=== PATIENT | male | born 1950 | race Caucasian/White ===

== ENCOUNTER 2017-08-20 07:29 | Outpatient (CLI) | payer MEDICARE, BC ==
--- NOTE | 2017-08-20 08:08 | ULT ---
ABDOMINAL PAIN: History: Abdominal pain. History of smoking. Diabetes. Hypertension. FINDINGS: Multiple longitudinal and transverse images of the abdominal aorta obtained using multihertz curvili near transducer. Real-time and color flow images demonstrate the abdominal aorta to be unremarkable. No significant e vidence of abdominal aortic aneurysms or dissection seen. Abdominal aorta has maximum proximal aorti c diameter of 2.0 x 1.9 cm measuring 1.7 x 1.5 cm in the mid abdominal aorta and 1.4 x 1.5 cm in the distal abdominal aorta. Normal triphasic waveform is seen. IMPRESSION: No evidence of abdominal aortic aneurysm. POS: [facility]
--- NOTE | 2017-08-20 08:19 | CT ---
CT PULMONARY LUNG SCAN: Indication: Screening evaluation. 67-year-old male with 50+ years of smoking, still smoking. FINDINGS: There is an area of subsegmental atelectasis versus scarring involving the posterolateral aspect of the right lower lobe. There is a small sub 4 mm nodule seen within the superior segment of the right lower lobe, adjacent to the right major fissure. No suspicious pulmonary nodule is evident. There are scattered centrilobular and para-septal emphysema. Visualized upper abdomen demonstrates c alcified granuloma within the spleen. There are scattered degenerative and osteoarthritic change. There is an 8.7 cm intramuscular lipoma within the left subscapularis. IMPRESSION: 1. Lung rads category 1 - negative. No suspicious pulmonary nodules. 2. Linear area of subsegmental atelectasis or scarring is seen within the posterolateral aspect of t he right lower lobe. 3. Recommend follow up lung cancer screening CT evaluation in one year. 4. Findings or prior granulomatous disease. 5. Intramuscular lipoma within the left subscapularis muscle. POS: [facility]
== END 2017-08-20 07:30 | disposition home or self-care (01) ==
LOC: CT 07:29
PROVIDERS: ATTEND Family Medicine
DX: Z00.00 Encounter for general adult medical examination without abnormal findings (principal); Z13.6 Encounter for screening for cardiovascular disorders; F17.210 Nicotine dependence, cigarettes, uncomplicated; D17.9 Benign lipomatous neoplasm, unspecified
CPT/HCPCS: 76775; G0297

== ENCOUNTER 2018-12-02 09:06 | Outpatient (CLI) | payer MEDICARE, BC ==
--- NOTE | 2018-12-02 10:20 | CT ---
CT OF THE CHEST WITHOUT CONTRAST: Comparison: 08-20-17 History: Nicotine dependence. 50+ pack/year smoking history. Technique: Multiple contiguous axial images were obtained in a CT of the chest without contrast per l ow dose cancer screening protocol. Sagittal and coronal reformats were performed. FINDINGS: No suspicious pulmonary nodules are seen. No pneumothorax or pleural effusion are seen. No focal infi ltrates are seen. The heart is normal size without focal cardiac abnormality. Calcifications are seen in the coronary a rteries. No hilar or mediastinal lymphadenopathy are seen. There appears to be a hyperdense cyst emanating from the superior pole of the right kidney, partially visualized. Calcifications in the spleen are from prior granulomatous disease. The other visualized subdiaphragmatic structures are unremarkable. The chest wall soft tissues are unremarkable. Degenerat balta changes are seen in the spine. IMPRESSION: Lung RADS category 1 - negative. POS: [facility]
== END 2018-12-02 09:07 | disposition home or self-care (01) ==
LOC: CT 09:06
PROVIDERS: ATTEND Family Medicine
DX: F17.210 Nicotine dependence, cigarettes, uncomplicated (principal)
CPT/HCPCS: G0297

== ENCOUNTER 2019-12-03 09:44 | Outpatient (CLI) | payer MEDICARE, BC ==
--- NOTE | 2019-12-03 11:14 | CT ---
CT chest noncontrast low-dose screening HISTORY: Tobacco abuse. COMPARISON: 12/02/2018. FINDINGS: Lungs remain hyperinflated. Proximal scarring now more prominent at the right posterolatera l lung base. No focal mass or nodule. No pleural fluid or evidence of pneumothorax. Lack of contrast limits evaluation of the soft tissues. There is calcification within the arterial st ructures. Degenerative changes of the thoracic spine. Scattered benign-appearing bone islands within the ribs. Lipoma within the left subscapularis musculature is stable. Inferior most images show a calcification within a nondilated posterior calyx of the right kidney. Lobular low-density exophytic lesion from the superior pole of the right kidney is 1.9 cm oblique brenda meter on today's coronal reformatted images. It is larger than on CT exams from 2012. IMPRESSION: Lung RADS category 1. Negative. Suggest routine screening for the lungs. Exophytic lesion in superior pole of the right kidney is partially visualized and warrants further ev aluation. Probably enlarging from 2017 exam. Please consider dedicated CT kidneys exam, without and with IV contrast for better characterization. Lung RADS S Emphysema with parenchymal lung scarring. Atherosclerosis. Small nonobstructing calculus right kidney. Other incidental-type findings as detailed above. Findings were called to Dr. Sanches 1100 hours. Code CR.
== END 2019-12-03 09:45 | disposition home or self-care (01) ==
LOC: CT 09:44
PROVIDERS: ATTEND Family Medicine
DX: Z12.2 Encounter for screening for malignant neoplasm of respiratory organs (principal); F17.210 Nicotine dependence, cigarettes, uncomplicated; N28.9 Disorder of kidney and ureter, unspecified; N20.0 Calculus of kidney; I70.0 Atherosclerosis of aorta; J43.9 Emphysema, unspecified
CPT/HCPCS: G0297

== ENCOUNTER 2019-12-13 10:47 | Outpatient (CLI) | payer MEDICARE, BC ==
--- NOTE | 2019-12-13 12:13 | CT ---
EXAM: CT Abdomen W WO Con PROVIDED CLINICAL HISTORY: Exophytic right renal lesion incompletely evaluated on noncontrast CT pulmonary lung scan. CT abdomen was requested. COMPARISON: CT pulmonary lung scan on 12/03/2019 FINDINGS: There are 2 hyperdense cystic-appearing lesions seen involving the superior pole and midportion right kidney which demonstrates increased density on precontrast images without evidence of significant enhancement on portal venous or delayed phase of imaging. Lesion in the superior pole right kidney me asures 2.6 cm whereas the lesion in the midportion right kidney measures 2.7 cm. There are multiple additional subcentimeter too small to characterize hypodense lesions scattered throughout each kidney . No enhancing lesion is appreciated. Nonobstructing bilateral renal calculi are identified. There is mild dilatation of inferior pole left renal calyx with mild prominence of the left ureter compared to the right. On delayed phase of imaging, there is suggestion of mild wall thickening involving the most proximal left ureter. This co uld be related to area of peristalsis, but abnormal thickening is suggested. Further evaluation with retrograde study is recommended. Minimal bibasilar atelectasis is present. A view subcentimeter too small to characterize hypodense lesions are seen in the right hepatic lobe. Calcified granuloma is also seen in the right hepatic lobe. Calcified granulomata are seen in the spleen. The pancreas and bilateral adrenal glands demonstrate a normal CT appearance. Vascular calcifications are seen in the abdominal aorta. Colonic diverticulosis is visualized. Loops of small bowel in the abdomen are normal in caliber. Multilevel degenerative changes are seen in the spine with severe endplate degenerative changes at th e L2-3 level. IMPRESSION: 1. Suggested focal area of thickening involving the green of the proximal right ureter. This could be related to an area of peristalsis, but the left ureter is asymmetric compared to the right. Further evaluation with retrograde urogram is recommended. There is mild dilatation of the inferior p ole left renal calyx. 2. Bosniak type II hyperdense exophytic right renal lesions with multiple subcentimeter too small to characterize hypodense lesions in each kidney. 3. No enhancing renal mass is appreciated. 4. Nonobstructing bilateral renal calculi.
[2019-12-13] MEDS ORDERED: Iopamidol-370 76% 500 ML 1 ML ONE (13:22)
== END 2019-12-13 10:48 | disposition home or self-care (01) ==
LOC: BICCT 10:47
PROVIDERS: ATTEND Family Medicine
DX: N28.89 Other specified disorders of kidney and ureter (principal); N20.0 Calculus of kidney
CPT/HCPCS: 74170; 82565; Q9967

== ENCOUNTER 2020-04-22 14:18 | Inpatient (IN) | payer MEDICARE, BC ==
[2020-04-22] MEDS ORDERED: Cefepime 2 GM VIAL ONE (14:49)
[2020-04-22 14:51] LABS: Hemoglobin 16.3 g/dL (14.0-18.0); Mean Corpuscular HGB CONC 34.2 g/dL (32.0-36.0); Mean Corpuscular Hemoglobin 35.6 pg (27.0-31.0); Mean Platelet Volume 7.6 fL (7.4-10.4); Platelet Count 158 thou/uL (130-400); RBC Distribution Width 13.2 % (11.5-14.5); Red Blood Cell (RBC) Count 4.57 mill/uL (4.70-6.10); White Blood Cell (WBC) Count 21.3 thou/uL (4.8-10.8)
[2020-04-22] MEDS ORDERED: Cefepime 2 GM in Sodium Chloride 0.9% 100 ML IVPB SCH (15:00)
[2020-04-22 15:11] LABS: ALT (SGPT) 27 U/L (8-55); AST (SGOT) 23 U/L (5-34); Alkaline Phosphatase 78 U/L (40-110); Anion Gap 19 mmol/L (10-20); BUN (Urea Nitrogen) 21 mg/dL (8.4-25.7); Calc. Creatinine Clearance 0 mL/min (70-130); Calcium 8.9 mg/dL (7.8-10.44); Carbon Dioxide 20 mmol/L (23-31); Chloride 103 mmol/L (98-107); Estimated GFR-MDRD 62; Globulin 3.1 g/dL (2.4-3.5); Glucose 137 mg/dL (80-115); Potassium 3.7 mmol/L (3.5-5.1); Protein, Total 7.1 g/dL (5.8-8.1); Sodium 138 mmol/L (136-145)
[2020-04-22 15:23] LABS: Band 56 % (5-11); Lymphocytes 3 % (21-51); MDiff Complete? YES; Macrocytosis SLIGHT = 6-15 cells (100X) (0-5/hpf); Monocytes 3 % (0-10); Neutrophil 38 % (42-75); Platelet Morphology Comment Appears Adequate; Polychromasia SLIGHT = 2-3 cells (100X) (0-2/hpf); Reflex for Review?? YES
--- NOTE | 2020-04-22 15:59 | ULT ---
LEFT LOWER EXTREMITY VENOUS DUPLEX EXAM: 04/22/20 HISTORY: Left leg swelling. Real time color Doppler evaluation of the left lower extremity is performed from groin to calf. This includes evaluation of common femoral, superficial and profunda femoral, saphenous, popliteal and po sterior tibial veins. This shows a patent deep venous system. There is normal compressibility and aug mentation. Soft tissue edema changes compatible with cellulitis are noted. IMPRESSION: No evidence of DVT of the left lower extremity. POS: [facility]
[2020-04-22] MEDS ORDERED: Dextrose 5% in Water 1,000 ML IV PRN (16:35)
[2020-04-22] MEDS ORDERED: Calcium Carbonate 500 MG ChewTAB PO PRN (16:35)
[2020-04-22] MEDS ORDERED: HYDROcodone/Acetaminophen 5/325 mg Tablet PO PRN (16:35)
[2020-04-22] MEDS ORDERED: Dextrose 50% Abboject 50 ML SYRINGE SLOW IVP PRN (16:35)
[2020-04-22] MEDS ORDERED: Senokot S 8.6-50 MG TAB PO PRN (16:35)
[2020-04-22] MEDS ORDERED: Guaifenesin DM 100-10/5 ML UDCUP PO PRN (16:35)
[2020-04-22] MEDS ORDERED: HumaLOG 300 UNITS/3 ML VIAL SC PRN ×2 (16:35)
[2020-04-22] MEDS ORDERED: Bisacodyl 10 MG SUPP PR PRN (16:35)
[2020-04-22 17:55] VITALS: BMI 38.8
[2020-04-22] MEDS: Sodium Chloride 0.9% 2,500 ML IV SCH ×3 (18:06→23:39)
--- NOTE | 2020-04-22 18:16 | HP ---
REASON FOR ADMISSION: Sepsis, left lower extremity cellulitis. HISTORY OF PRESENTING ILLNESS: The patient gives history of developing chills this morning. His legs were apparently normal in the morning per the patient and . He also mentions that he has had off and on swelling in his left leg especially, which goes away. Around 2 p.m., the patient developed severe nausea and had intractable vomiting. His left leg also started to become red and was hot to touch. The eventually brought him to the emergency room. On arrival, had a temperature of 100.9 degrees. No complaints of cough or expectoration. No exposure to Coronavirus. They hardly come out 4 times in the last 3 months. He has had 1 prior episode of cellulitis years ago and does not recall, which leg he had. The patient states he is active in the house and moves around without any assistive devices. PAST MEDICAL AND SURGICAL HISTORY: 1. Diabetes mellitus type 2. 2. Hypertension. 3. Dyslipidemia. 4. Cataract removal and lens implantation. 5. Bilateral hernia repair, inguinal. 6. Tonsillectomy. 7. Renal stones with surgery for the same. 8. Bilateral hip replacement. CURRENT MEDICATIONS: The patient takes; 1. Allopurinol 300 mg p.o. daily. 2. Norvasc 10 mg daily. 3. Lasix 40 mg daily. 4. Metformin 1000 mg twice daily. 5. Metoprolol tartrate 100 mg daily. 6. Losartan with hydrochlorothiazide 50/12.5 mg daily. 7. Niacin 1000 mg daily. ALLERGIES: NO KNOWN DRUG ALLERGIES. PERSONAL HISTORY: Smokes less than a pack a day. Does not abuse alcohol or drugs. Lives with his . FAMILY HISTORY: Mother at the age of 84. She has had history of renal failure. Father at the age of 76. He has had history of Parkinson disease. CODE STATUS: Full. Power of commonwealth attorney is his . REVIEW OF SYSTEMS: CONSTITUTIONAL: Negative for weight loss or gain, ability to conduct usual activities. SKIN: Negative for rash, itching. EYES: Negative for double vision, pain. ENT/MOUTH: Negative for nose bleeding, neck stiffness, pain, tenderness. CARDIOVASCULAR: Negative for palpitations, dyspnea on exertion, orthopnea. RESPIRATORY: Negative for shortness of breath, wheezing, cough, hemoptysis, fever or night sweats. GASTROINTESTINAL: Negative for poor appetite, abdominal pain, heartburn, nausea, vomiting, constipation, or diarrhea. GENITOURINARY: Negative for urgency, frequency, dysuria, nocturia. MUSCULOSKELETAL: Negative for pain, swelling. NEUROLOGIC/PSYCHIATRIC: Negative for anxiety, depression. ALLERGY/IMMUNOLOGIC: Negative for skin rash, bleeding tendency. PHYSICAL EXAMINATION: GENERAL: The patient is a 69-year-old male, who is currently not in any acute distress. VITAL SIGNS: Blood pressure 132/80, pulse 110 per minute, respiratory rate 20 per minute, temperature 100.9 degrees Fahrenheit, saturating 98% on room air. NECK: Supple. No elevated JVD. HEENT: Eyes; extraocular muscles intact. Pupils reacting to light. Oral cavity, mucous membranes are dry. No exudates or congestion. CARDIOVASCULAR: S1, S2 heard. Regular rhythm. RESPIRATORY: Air entry 1+ bilateral. Scattered rhonchi plus no rales or wheezes. ABDOMEN: Soft. Bowel sounds heard. No tenderness, rigidity, or guarding. EXTREMITIES: Left leg and foot area, where there is severe erythema and edema, and it is hot to touch. Peripheral pulses are 1+ bilateral. No ischemic ulcerations or gangrene. CENTRAL NERVOUS SYSTEM: No gross focal motor deficits noted. The patient is alert, awake, oriented well. PSYCHIATRIC: The patient's mood is euthymic. No hallucinations or delusions. LABORATORY DATA: Left lower extremity venous Doppler done, shows no evidence of DVT. White count of 21, H and H of 16 and 47, platelet count 158, with 38% neutrophils, 56% bands, 3% lymphocytes. MCV is 104, serum bicarb 20, BUN 21, creatinine 1.1, serum glucose 137, lactic acid 4.6. Liver enzymes within normal limits. Albumin is 4.0. CLINICAL IMPRESSION AND PLAN: The patient will be admitted to medical floor for sepsis with severe left lower extremity cellulitis. He will be on vancomycin and Zosyn. Blood cultures have been obtained in the ER. We will also gently hydrate him with normal saline at 100 mL per hour. We will continue his home dose of Norvasc, metoprolol, Cozaar with hydrochlorothiazide, metformin as before. We will consult Dr. Arizmendi for Infectious Disease. The patient appears to have a sudden onset of left leg cellulitis with severe edema as well, which was apparently normal in the morning per patient and . If needed, we will add clindamycin to block the toxins if he were to get worse. Job ID: [id number]
[2020-04-22] MEDS: Ondansetron PF 4 MG/2 ML Vial IVP PRN (18:26)
[2020-04-22] MEDS: Sodium Chloride 0.9% 1,000 ML IV SCH (18:33)
[2020-04-22] MEDS: Piperacillin/Tazobactam 4.5 GM in Sodium Chloride 0.9% 100 ML IVPB SCH (18:33)
[2020-04-22 18:37] LABS: Lactic Acid 4.2 mmol/L (0.5-2.2)
[2020-04-22] MEDS: Famotidine 20 MG TAB PO SCH (20:23)
[2020-04-22] MEDS: Acetaminophen 325 MG TAB PO PRN (20:25)
[2020-04-22] MEDS: Amlodipine 5 MG TAB PO SCH (20:29)
[2020-04-22] MEDS ORDERED: Vancomycin HCl 1 GM in Sodium Chloride 0.9% 250 ML 300 ML IVPB SCH (21:00)
[2020-04-22 22:18] LABS: Lactic Acid 2.5 mmol/L (0.5-2.2)
[2020-04-23] MEDS: Piperacillin/Tazobactam 4.5 GM in Sodium Chloride 0.9% 100 ML IVPB SCH ×2 (03:20→08:39)
[2020-04-23] MEDS: Sodium Chloride 0.9% 1,000 ML IV SCH (03:20)
[2020-04-23] MEDS: Vancomycin HCl 1.25 GM in Sodium Chloride 0.9% 250 ML 250 ML IVPB SCH ×2 (03:22→15:58)
[2020-04-23] MEDS: Ondansetron PF 4 MG/2 ML Vial IVP PRN (03:22)
[2020-04-23 06:13] LABS: Anion Gap 14 mmol/L (10-20); BUN (Urea Nitrogen) 22 mg/dL (8.4-25.7); Calc. Creatinine Clearance 105 mL/min (70-130); Calcium 7.2 mg/dL (7.8-10.44); Carbon Dioxide 21 mmol/L (23-31); Chloride 105 mmol/L (98-107); Estimated GFR-MDRD 60; Glucose 100 mg/dL (80-115); Potassium 3.6 mmol/L (3.5-5.1); Sodium 136 mmol/L (136-145)
[2020-04-23 06:38] LABS: Hemoglobin 13.9 g/dL (14.0-18.0); Mean Corpuscular HGB CONC 35.1 g/dL (32.0-36.0); Mean Corpuscular Hemoglobin 37.1 pg (27.0-31.0); Mean Platelet Volume 7.9 fL (7.4-10.4); Platelet Count 125 thou/uL (130-400); RBC Distribution Width 13.6 % (11.5-14.5); Red Blood Cell (RBC) Count 3.74 mill/uL (4.70-6.10); White Blood Cell (WBC) Count 19.8 thou/uL (4.8-10.8)
[2020-04-23 08:00] LABS: Band 27 % (5-11); Eosinophils 1 % (0-10); Lymphocytes 11 % (21-51); MDiff Complete? YES; Macrocytosis SLIGHT = 6-15 cells (100X) (0-5/hpf); Monocytes 3 % (0-10); Neutrophil 58 % (42-75)
[2020-04-23] MEDS: Enoxaparin Sodium 40 MG/0.4 ML SYRINGE SC SCH (08:39)
[2020-04-23] MEDS: metFORMIN 500 MG TAB PO SCH ×2 (08:39→15:58)
[2020-04-23] MEDS: Famotidine 20 MG TAB PO SCH ×2 (08:39→20:16)
[2020-04-23] MEDS: Acetaminophen 325 MG TAB PO PRN ×2 (10:29→15:58)
--- NOTE | 2020-04-23 11:48 | PDOC.HOSPP ---
- Subjective Encounter Date: 04/23/20 Encounter Time: 08:30 Subjective: has off and on fever at bedside no cough or expectoration says his leg redness is slowly receding slept well last night - Objective Vital Signs & Weight: Vital Signs (12 hours) Temp Pulse Resp BP BP Pulse Ox 04/23/20 11:00 101.8 F H 82 17 131/73 92 L 04/23/20 08:00 95 04/23/20 07:02 101.6 F H 78 19 120/71 93 L 04/23/20 04:00 99.5 F 75 20 99/62 92 L 04/22/20 23:57 100.4 F H 69 20 97/61 92 L Weight Weight 286 lb 4.8 oz I&O: 04/22/20 04/23/20 04/24/20 06:59 06:59 06:59 Intake Total 450 Balance 450 Result Diagrams: 04/23/20 05:23 04/23/20 05:23 Hospitalist ROS - Medication Medications: Active Medications Generic Name Dose Route Start Last Admin Trade Name Freq PRN Reason Stop Dose Admin Acetaminophen 650 mg 04/22/20 16:35 04/23/20 10:29 Tylenol PO 650 mg Q4H PRN Administration Headache/Fever/Mild Pain (1-3) Amlodipine Besylate 10 mg 04/22/20 21:00 04/22/20 20:29 Norvasc PO Not Given QPM KAYA Enoxaparin Sodium 40 mg 04/23/20 09:00 04/23/20 08:39 Lovenox SC 40 mg 0900 KAYA Administration Famotidine 20 mg 04/22/20 21:00 04/23/20 08:39 Pepcid PO 20 mg BID KAYA Administration HCTZ/Losartan Potassium 1 tab 04/22/20 21:00 04/22/20 20:23 Hyzaar 50/12.5 PO 1 tab QPM KAYA Administration Sodium Chloride 1,000 mls @ 100 mls/hr 04/22/20 16:35 04/23/20 03:20 Normal Saline 0.9% IV 04/23/20 12:34 1,000 mls .Q10H KAYA Administration Vancomycin HCl 1.25 gm/ Sodium 250 mls @ 166.667 mls/hr 04/23/20 04:00 03:22 Chloride IVPB 250 mls 0400,1600 KAYA Administration Metformin HCl 1,000 mg 04/23/20 08:00 04/23/20 08:39 Glucophage PO 1,000 mg BID-WM KAYA Administration Metoprolol Succinate 100 mg 04/22/20 21:00 04/22/20 20:23 Toprol Xl PO 100 mg QPM KAYA Administration Niacin 1,000 mg 04/22/20 21:00 04/22/20 20:23 Niaspan Er PO 1,000 mg HS KAYA Administration Ondansetron HCl 4 mg 04/22/20 16:35 04/23/20 03:22 Zofran IVP 4 mg Q6H PRN Administration Nausea/Vomiting - Exam General Appearance: awake alert Eye: PERRL, anicteric sclera ENT: no oropharyngeal lesions, moist mucosa Neck: supple, no JVD Heart: RRR, no murmur Respiratory: no wheezes, no rales Gastrointestinal: soft, non-tender, non-distended, normal bowel sounds Extremities - other findings: left leg erythema and edema, one blister has come up posteriorly Neurological: cranial nerve grossly intact, no focal deficits Hosp A/P (1) Sepsis Code(s): A41.9 - SEPSIS, UNSPECIFIED ORGANISM Status: Acute Qualifiers: Sepsis type: sepsis due to unspecified organism Severe sepsis shock status : without septic shock (2) Left leg cellulitis Code(s): L03.116 - CELLULITIS OF LEFT LOWER LIMB Status: Acute (3) HTN (hypertension) Code(s): I10 - ESSENTIAL (PRIMARY) HYPERTENSION Status: Chronic Qualifiers: Hypertension type: essential hypertension Qualified Code(s): I10 - Essential (primary) hypertension (4) DM type 2 (diabetes mellitus, type 2) Status: Chronic Qualifiers: Diabetes mellitus lobsterman insulin use: without custodial use (5) Dyslipidemia Code(s): E78.5 - HYPERLIPIDEMIA, UNSPECIFIED Status: Chronic (6) Obesity (BMI 30-39.9) Code(s): E66.9 - OBESITY, UNSPECIFIED Status: Chronic (7) Tobacco abuse Code(s): Z72.0 - TOBACCO USE Status: Chronic - Plan change zosyn to meropenem, is also on vanc tmax of 102 continue iv fluids d/w patient and at bedside Dr.Ugo to see pt erythema is slowly receding in left leg but still has edema.
[2020-04-23] MEDS: MEROPENEM 1 GM/50 ML 1 GM in Premix Bag 1 BAG IVPB SCH ×2 (14:04→21:16)
--- NOTE | 2020-04-23 19:49 | CON ---
DATE OF CONSULTATION: 04/23/2020 REASON FOR CONSULTATION: Cellulitis in the left lower extremity. HISTORY OF PRESENT ILLNESS: A 69-year-old who has a history of chronic smoking, type 2 diabetes, hyperlipidemia, obesity, and hypertension, who has had episodes of cellulitis in the lower extremities in the past and presents with another recurrence in the left side. This developed over the past 2 days approximately before admission. On arrival, his BP 130/80, pulse 115, respirations 20, temperature 100.9, and O2 saturations were 98. The patient was oriented. His lungs were clear. Heart exam showed S1 and S2 with regular rate. Abdomen was distended, but not tender. There was marked erythema in the circumferential distribution in the left lower extremity below the knee, but no blistering. Initial findings included a white cell count 21,000, hemoglobin 16, and platelets 158 with 56% bands. Creatinine was 1.2 and liver profile was normal. Lactic acid was 4.6 and is down to 2.5 at the moment. Two sets of blood cultures thus far no growth. The patient has been given vancomycin and meropenem. He is still having intermittent temperature elevation of 102.9 at 10 o'clock and then 101 at 11. Right now, he appears to be feeling better. He denies any headaches, visual symptoms, sore throat, odynophagia, or dysphagia. No dyspnea. A little bit of coughing spells. No abdominal pain. No diarrhea. No genitourinary symptoms. Moderate pain in the left leg, but not as much as yesterday. MEDICAL HISTORY: 1. Diabetes. 2. Obesity. 3. Chronic smoking. 4. Hyperlipidemia. 5. Hypertension. 6. Cellulitis. 7. Venous insufficiency of lower extremities. 8. Also had a history of gout in the past. SURGICAL HISTORY: 1. Nephrolithiasis. 2. Removal of cataracts. 3. Inguinal hernia repair with detached retina. 4. Hip replacement bilaterally. SOCIAL HISTORY: He used to work at [employer] in the [employer] department. He is retired. Lives with his in [place]. Both smoke daily and does not drink alcoholic beverages much. ALLERGIES: NONE. CURRENT MEDICATIONS: 1. P.r.n. medications and inhalers. 2. Norvasc. 3. Dulcolax. 4. Tums. 5. Lovenox. 6. Pepcid. 7. Hydrochlorothiazide. 8. Losartan. 9. Ibuprofen. 10. Insulin. 11. Meropenem 1 g q.8. 12. Vancomycin. PHYSICAL EXAMINATION: VITAL SIGNS: Latest temperature 101.8 a few hours ago. Other vital signs are not remarkable. GENERAL: Appears in no distress. Peripheral IV access. He is voiding in the toilet. SKIN: Circumferential erythema in the left leg, starting about 5 cm below the left knee all the way down to the foot, stopping at the ankle and hindfoot region. There is no blistering. No areas of necrosis. No lymphadenopathy. HEENT: Ocular movements conjugate. Oral cavity, still quite a few teeth in place with moderate decay. NECK: Supple. No jugular vein distention. LUNGS: Symmetric with clear breath sounds. HEART: S1 and S2. Regular rate. No S3 or S4. ABDOMEN: Protuberant, but not tender. No ascites. No bladder distention. No organomegaly. EXTREMITIES: No joint inflammatory activity. Range of motion of hips are preserved. Pulses are 2+ in dorsalis pedis. Cap refill is normal. NEUROLOGIC: Nonfocal. LABORATORY DATA: Latest labs with a creatinine 1.2 and white cell count is at 19.8. The bands are down to 27%. He had a vascular ultrasound, which showed no evidence of deep vein thrombosis. ASSESSMENT: 1. Chronic smoking. 2. Diabetes. 3. Obesity. 4. Hypertension. 5. Venous insufficiency. 6. Recurrent episodes of cellulitis, now with cellulitis in the left lower extremity. DISCUSSION: Most cases of cellulitis and extremities in the lower extremities are secondary to beta-hemolytic streptococci. I expect this to be the case in this patient's illness as well. Once there is further improvement, I would transition him to Rocephin and eventually to oral Keflex for discharge planning, he would benefit from compressive stockings or some form of device such as wraps down the road. I would also advise long-term suppressive therapy with Pen VK 250 mg b.i.d. Job ID: [id number]
[2020-04-23] MEDS: Amlodipine 5 MG TAB PO SCH (20:16)
[2020-04-24] MEDS: Acetaminophen 325 MG TAB PO PRN ×3 (02:02→18:46)
[2020-04-24 03:53] LABS: Vancomycin, Trough 6.2 ug/mL
[2020-04-24] MEDS: Vancomycin HCl 1.25 GM in Sodium Chloride 0.9% 250 ML 250 ML IVPB SCH (04:23)
[2020-04-24] MEDS ORDERED: Meropenem 1 GM in Sodium Chloride 0.9% 100 ML IVPB SCH (06:00)
[2020-04-24] MEDS: Enoxaparin Sodium 40 MG/0.4 ML SYRINGE SC SCH (08:13)
[2020-04-24] MEDS: metFORMIN 500 MG TAB PO SCH ×2 (08:13→16:21)
[2020-04-24] MEDS: Nicotine 21 MG PATCH TD SCH (08:13)
[2020-04-24] MEDS: Famotidine 20 MG TAB PO SCH ×2 (08:13→20:27)
[2020-04-24 08:24] LABS: Hemoglobin 14.1 g/dL (14.0-18.0); Mean Corpuscular HGB CONC 34.1 g/dL (32.0-36.0); Mean Corpuscular Hemoglobin 36.1 pg (27.0-31.0); Platelet Count 136 thou/uL (130-400); RBC Distribution Width 13.3 % (11.5-14.5); White Blood Cell (WBC) Count 24.5 thou/uL (4.8-10.8)
[2020-04-24 08:31] LABS: Anion Gap 16 mmol/L (10-20); BUN (Urea Nitrogen) 17 mg/dL (8.4-25.7); Calc. Creatinine Clearance 115 mL/min (70-130); Calcium 7.6 mg/dL (7.8-10.44); Carbon Dioxide 21 mmol/L (23-31); Chloride 103 mmol/L (98-107); Estimated GFR-MDRD 66; Glucose 120 mg/dL (80-115); Potassium 3.5 mmol/L (3.5-5.1); Sodium 136 mmol/L (136-145)
[2020-04-24 09:46] LABS: Band 18 % (5-11); Lymphocytes 11 % (21-51); MDiff Complete? YES; Metamyelocyte 1 % (0-0); Monocytes 5 % (0-10); Neutrophil 64 % (42-75); Platelet Morphology Comment Appears Adequate; Polychromasia SLIGHT = 2-3 cells (100X) (0-2/hpf); Reactive Lymphocytes 1 % (0-10)
--- NOTE | 2020-04-24 11:29 | PDOC.HOSPP ---
- Subjective Encounter Date: 04/24/20 Encounter Time: 10:00 Subjective: feels better this am at bedside fever is slowly subsiding - Objective Vital Signs & Weight: Vital Signs (12 hours) Temp Pulse Resp BP Pulse Ox 04/24/20 08:13 98 04/24/20 07:41 98.9 F 79 24 H 107/55 L 98 04/24/20 03:54 99 F 75 18 106/65 91 L 04/24/20 00:00 100.6 F H 89 18 104/64 93 L Weight Weight 286 lb 4.8 oz I&O: 04/23/20 04/24/20 04/25/20 06:59 06:59 06:59 Intake Total 450 950 Balance 450 950 Result Diagrams: 04/24/20 07:54 04/24/20 07:54 Hospitalist ROS - Medication Medications: Active Medications Generic Name Dose Route Start Last Admin Trade Name Freq PRN Reason Stop Dose Admin Acetaminophen 650 mg 04/22/20 16:35 04/24/20 02:02 Tylenol PO 650 mg Q4H PRN Administration Headache/Fever/Mild Pain (1-3) Amlodipine Besylate 10 mg 04/22/20 21:00 04/23/20 20:16 Norvasc PO 10 mg QPM KAYA Administration Enoxaparin Sodium 40 mg 04/23/20 09:00 04/24/20 08:13 Lovenox SC 40 mg 0900 KAYA Administration Famotidine 20 mg 04/22/20 21:00 04/24/20 08:13 Pepcid PO 20 mg BID KAYA Administration HCTZ/Losartan Potassium 1 tab 04/22/20 21:00 04/23/20 20:20 Hyzaar 50/12.5 PO 1 tab QPM KAYA Administration Vancomycin HCl 2 gm/ Sodium 500 mls @ 250 mls/hr 04/24/20 05:00 04/24/20 04: 42 Chloride IVPB 500 mls 0500,1700 KAYA Administration Metformin HCl 1,000 mg 04/23/20 08:00 04/24/20 08:13 Glucophage PO 1,000 mg BID-WM KAYA Administration Metoprolol Succinate 100 mg 04/22/20 21:00 04/23/20 20:16 Toprol Xl PO 100 mg QPM KAYA Administration Niacin 1,000 mg 04/22/20 21:00 04/23/20 20:20 Niaspan Er PO 1,000 mg HS KAYA Administration Nicotine 21 mg 04/24/20 09:00 04/24/20 08:13 Nicoderm Patch TD 21 mg DAILY KAYA Administration Ondansetron HCl 4 mg 04/22/20 16:35 04/23/20 03:22 Zofran IVP 4 mg Q6H PRN Administration Nausea/Vomiting - Exam General Appearance: awake alert Eye: PERRL, anicteric sclera ENT: no oropharyngeal lesions, moist mucosa Neck: supple, no JVD Heart: RRR, no murmur Respiratory: no wheezes, no rales, rhonchi Gastrointestinal: soft, non-tender, non-distended, normal bowel sounds Extremities - other findings: left leg erythema and edema Neurological: cranial nerve grossly intact, no focal deficits Psychiatric: normal affect, A&O x 3 Hosp A/P (1) Sepsis Code(s): A41.9 - SEPSIS, UNSPECIFIED ORGANISM Status: Acute Qualifiers: Sepsis type: sepsis due to unspecified organism Severe sepsis shock status : without septic shock (2) Left leg cellulitis Code(s): L03.116 - CELLULITIS OF LEFT LOWER LIMB Status: Acute (3) HTN (hypertension) Code(s): I10 - ESSENTIAL (PRIMARY) HYPERTENSION Status: Chronic Qualifiers: Hypertension type: essential hypertension Qualified Code(s): I10 - Essential (primary) hypertension (4) DM type 2 (diabetes mellitus, type 2) Status: Chronic Qualifiers: Diabetes mellitus intermodal dispatcher insulin use: without senior living use (5) Dyslipidemia Code(s): E78.5 - HYPERLIPIDEMIA, UNSPECIFIED Status: Chronic (6) Obesity (BMI 30-39.9) Code(s): E66.9 - OBESITY, UNSPECIFIED Status: Chronic (7) Tobacco abuse Code(s): Z72.0 - TOBACCO USE Status: Chronic - Plan is on meropenem and vanc tmax of 100 continue iv fluids d/w patient and at bedside has seen patient anat tid erythema is slowly receding in left leg but still has edema.
[2020-04-24] MEDS: Sodium Chloride 0.9% 1,000 ML IV SCH (12:17)
[2020-04-24] MEDS: MEROPENEM 1 GM/50 ML 1 GM in Premix Bag 1 BAG IVPB SCH ×2 (13:02→22:53)
--- NOTE | 2020-04-24 17:05 | PRG ---
DATE OF SERVICE: 04/24/2020 SUBJECTIVE: Mr. Frederick went for a walk and his leg got more swollen and red right after it. Other than that, he is slowly getting better. Had a diarrhea. OBJECTIVE: VITAL SIGNS: 102 last temperature at 12 o'clock. Overall, the temp curve seems to be improving. Other vital signs are not particularly remarkable. EXTREMITIES: The left leg is bright red, but not as swollen as before, and there is a one tense blister medial aspect of the left ankle. No discoloration otherwise. LUNGS: Clear. HEART: S1 and S2, regular rate. ABDOMEN: Soft. Not distended. LABORATORY DATA: White cell count 24.5, hemoglobin 14, bands are down to 18%, which is steady improvement. Creatinine 1.1. Blood cultures, no growth 48 hours. ASSESSMENT: Chronic smoking, diabetes, obesity, venous insufficiency, cellulitis of left lower extremity, quite severe. Again, beta-hemolytic strep most likely scenario here. We will discontinue vancomycin. Continue Merrem for now. Eventually, transition to Rocephin and Keflex for discharge planning. I do not see any evidence to suggest a necrotizing process. Job ID: [id number]
[2020-04-24] MEDS: Amlodipine 5 MG TAB PO SCH (20:27)
[2020-04-25] MEDS: Sodium Chloride 0.9% 1,000 ML IV SCH (03:56)
[2020-04-25] MEDS: MEROPENEM 1 GM/50 ML 1 GM in Premix Bag 1 BAG IVPB SCH (05:21)
[2020-04-25 06:35] LABS: #Basophils 0.1 thou/uL (0.0-0.2); #Eosinphils 0.1 thou/uL (0.0-0.7); #Lymphocytes 1.8 thou/uL (1.20-3.40); #Monocytes 0.9 thou/uL (0.11-0.59); #Neutrophils 15.8 thou/uL (1.40-6.50); %Basophils 0.3 % (0.0-1.0); %Eosinophils 0.3 % (0.0-10.0); %Lymphocytes 9.7 % (21.0-51.0); %Monocytes 4.6 % (0.0-10.0); %Neutrophils 85.1 % (42.0-75.0); Hemoglobin 13.5 g/dL (14.0-18.0); Mean Corpuscular HGB CONC 34.7 g/dL (32.0-36.0); Mean Corpuscular Hemoglobin 36.2 pg (27.0-31.0); Mean Platelet Volume 8.2 fL (7.4-10.4); Platelet Count 131 thou/uL (130-400); RBC Distribution Width 13.3 % (11.5-14.5); Red Blood Cell (RBC) Count 3.73 mill/uL (4.70-6.10); White Blood Cell (WBC) Count 18.6 thou/uL (4.8-10.8)
[2020-04-25 06:52] LABS: Anion Gap 13 mmol/L (10-20); BUN (Urea Nitrogen) 13 mg/dL (8.4-25.7); Calc. Creatinine Clearance 156 mL/min (70-130); Calcium 7.5 mg/dL (7.8-10.44); Carbon Dioxide 21 mmol/L (23-31); Chloride 106 mmol/L (98-107); Estimated GFR-MDRD Greater than 90; Glucose 105 mg/dL (80-115); Potassium 3.3 mmol/L (3.5-5.1); Sodium 137 mmol/L (136-145)
[2020-04-25] MEDS: Famotidine 20 MG TAB PO SCH ×2 (08:24→20:48)
[2020-04-25] MEDS: metFORMIN 500 MG TAB PO SCH ×2 (08:24→17:15)
[2020-04-25] MEDS: Enoxaparin Sodium 40 MG/0.4 ML SYRINGE SC SCH (08:25)
[2020-04-25] MEDS: Nicotine 21 MG PATCH TD SCH (08:26)
[2020-04-25] MEDS ORDERED: Magnevist 469MG/ML 20 ML VIAL ONE (09:29)
--- NOTE | 2020-04-25 12:34 | PDOC.HOSPP ---
- Subjective Encounter Date: 04/25/20 Encounter Time: 10:15 Subjective: feels better, fever has subsided - Objective Vital Signs & Weight: Vital Signs (12 hours) Temp Pulse Resp BP Pulse Ox 04/25/20 12:09 82 16 92 L 04/25/20 11:59 99.2 F 04/25/20 08:00 95 04/25/20 07:12 98.9 F 91 20 150/82 H 95 04/25/20 06:39 84 16 98 04/25/20 05:42 99.2 F Weight Admit Weight 286 lb 4.8 oz Weight 286 lb 4.8 oz I&O: 04/24/20 04/25/20 04/26/20 06:59 06:59 06:59 Intake Total 950 1020 Balance 950 1020 Result Diagrams: 04/25/20 06:20 04/25/20 06:20 Additional Labs: Accuchecks 04/25/20 04/24/20 04/24/20 05:41 19:43 17:12 POC Glucose 110 126 H 107 04/24/20 04/23/20 05:50 19:14 POC Glucose 100 106 Hospitalist ROS - Medication Medications: Active Medications Generic Name Dose Route Start Last Admin Trade Name Freq PRN Reason Stop Dose Admin Acetaminophen 650 mg 04/22/20 16:35 04/24/20 18:46 Tylenol PO 650 mg Q4H PRN Administration Headache/Fever/Mild Pain (1-3) Hydrocodone Bitart/Acetaminophen 1 tab 04/22/20 16:35 04/24/20 14:20 [place] 5/325 PO 1 tab Q4H PRN Administration Moderate Pain (4-6) Albuterol/Ipratropium 3 ml 04/24/20 12:30 04/25/20 12:09 Duoneb NEB 3 ml TID-RT KAYA Administration Amlodipine Besylate 10 mg 04/22/20 21:00 04/24/20 20:27 Norvasc PO 10 mg QPM KAYA Administration Enoxaparin Sodium 40 mg 04/23/20 09:00 04/25/20 08:25 Lovenox SC 40 mg 0900 KAYA Administration Famotidine 20 mg 04/22/20 21:00 04/25/20 08:24 Pepcid PO 20 mg BID KAYA Administration HCTZ/Losartan Potassium 1 tab 04/22/20 21:00 04/24/20 20:27 Hyzaar 50/12.5 PO 1 tab QPM KAYA Administration Meropenem 1 gm/ Device 50 mls @ 100 mls/hr 04/24/20 14:00 04/25/20 05:21 IVPB 50 mls Q8HR KAYA Administration Metformin HCl 1,000 mg 04/23/20 08:00 04/25/20 08:24 Glucophage PO 1,000 mg BID-WM KAYA Administration Metoprolol Succinate 100 mg 04/22/20 21:00 04/24/20 20:27 Toprol Xl PO 100 mg QPM KAYA Administration Niacin 1,000 mg 04/22/20 21:00 04/24/20 20:27 Niaspan Er PO 1,000 mg HS KAYA Administration Nicotine 21 mg 04/24/20 09:00 04/25/20 08:26 Nicoderm Patch TD 21 mg DAILY KAYA Administration Ondansetron HCl 4 mg 04/22/20 16:35 04/23/20 03:22 Zofran IVP 4 mg Q6H PRN Administration Nausea/Vomiting - Exam General Appearance: awake alert Eye: PERRL, anicteric sclera ENT: no oropharyngeal lesions, moist mucosa Neck: supple, no JVD Heart: RRR, no murmur Respiratory: no wheezes, no rales Gastrointestinal: soft, non-tender, non-distended, normal bowel sounds Extremities - other findings: left leg has severe erythema, blisters and edema Neurological: cranial nerve grossly intact, no focal deficits Psychiatric: normal affect, A&O x 3 Hosp A/P (1) Sepsis Code(s): A41.9 - SEPSIS, UNSPECIFIED ORGANISM Status: Acute Qualifiers: Sepsis type: sepsis due to unspecified organism Severe sepsis shock status : without septic shock (2) Left leg cellulitis Code(s): L03.116 - CELLULITIS OF LEFT LOWER LIMB Status: Acute (3) HTN (hypertension) Code(s): I10 - ESSENTIAL (PRIMARY) HYPERTENSION Status: Chronic Qualifiers: Hypertension type: essential hypertension Qualified Code(s): I10 - Essential (primary) hypertension (4) DM type 2 (diabetes mellitus, type 2) Status: Chronic Qualifiers: Diabetes mellitus prison insulin use: without prison use (5) Dyslipidemia Code(s): E78.5 - HYPERLIPIDEMIA, UNSPECIFIED Status: Chronic (6) Obesity (BMI 30-39.9) Code(s): E66.9 - OBESITY, UNSPECIFIED Status: Chronic (7) Tobacco abuse Code(s): Z72.0 - TOBACCO USE Status: Chronic - Plan is on meropenem tmax of 99 will add lasix due to worsoning edema and blistering d/w patient and at bedside has seen patient duonebs tid hemostable
[2020-04-25] MEDS: Ibuprofen 600 MG TAB PO PRN (13:18)
[2020-04-25] MEDS: Furosemide 40 MG/4 ML VIAL SLOW IVP SCH (13:18)
[2020-04-25] MEDS: cefTRIAXone\\ROCEPHIN 1 GM in Sodium Chloride 0.9% 100 ML IVPB SCH (13:26)
--- NOTE | 2020-04-25 13:34 | PRG ---
DATE OF SERVICE: 04/25/2020 SUBJECTIVE: The patient when I arrived in the room was sitting in a chair by the bedside. His legs were down. He had to be gotten tired of lying in bed and is having some back soreness. No respiratory symptoms. He is having still loose stools intermittently. OBJECTIVE: VITAL SIGNS: His T-max now is 99.8 and clear defervescence over the past few days. GENERAL: There is no distress. LUNGS: Clear to auscultation and percussion. HEART: S1 and S2. Regular rate. ABDOMEN: Soft, not distended. Bowel sounds are normal. EXTREMITIES: The left leg with about the same erythema, but I think that this has to do with the fact that he is keeping his leg down. Whenever I elevated the extremity, within a few minutes there is a clear-cut decrease in the amount of erythema, so most of it now is turning into just vascular hyperemia associated with inflammatory process, but not true cellulitic erythema. LABORATORY DATA: White cell count is down to 18.6, hemoglobin 13.5, 85% neutrophils, and the bands are down. Creatinine 0.81. ASSESSMENT AND DISCUSSION: Chronic smoking, diabetes, obesity, venous insufficiency, cellulitis of left lower extremity with steady improvement. We will go ahead and switch him to Rocephin at this moment and we encouraged the patient to keep his legs elevated to accelerate improvement process. Job ID: [id number]
--- NOTE | 2020-04-25 15:19 | MRI ---
EXAM: MRI right distal foreleg and ankle with and without IV contrast PROVIDED CLINICAL HISTORY: Cellulitis COMPARISON: None FINDINGS: There is extensive noncircumscribed fluid signal intensity throughout the subcutaneous adipose layer of the visualized foreleg and foot. There is no evidence for a rim-enhancing fluid collection to suggest abscess. There is diffuse regional skin thickening. There is no evidence for regional joint effusion. Regional marrow signal appears normal. There is extensive patchy signal alteration on fluid sensitive sequences throughout the foreleg muscu lature, predominating involving the posterior compartment. There is no significant regional tenosynovial fluid evident. The courses of the regional major neurovascular structures appear unremarkable. IMPRESSION: 1. Extensive noncircumscribed, nonenhancing fluid signal intensity throughout the subcutaneous adipos e layer of the visualized foreleg and foot, which could reflect lymphedema and/or cellulitis. There is no evidence for soft tissue abscess. 2. No evidence for osteomyelitis. 3. Extensive patchy regional muscular signal alteration, which can be seen in the setting of diabetic myonecrosis, as well as denervation and nonspecific myositis.
[2020-04-25] MEDS: Amlodipine 5 MG TAB PO SCH (20:48)
[2020-04-26] MEDS: Furosemide 40 MG/4 ML VIAL SLOW IVP SCH ×2 (05:39→13:33)
[2020-04-26 06:25] LABS: #Basophils 0.1 thou/uL (0.0-0.2); #Eosinphils 0.1 thou/uL (0.0-0.7); #Lymphocytes 1.6 thou/uL (1.20-3.40); #Monocytes 0.7 thou/uL (0.11-0.59); #Neutrophils 9.9 thou/uL (1.40-6.50); %Basophils 0.5 % (0.0-1.0); %Eosinophils 0.7 % (0.0-10.0); %Lymphocytes 12.6 % (21.0-51.0); %Monocytes 5.7 % (0.0-10.0); %Neutrophils 80.5 % (42.0-75.0); Hemoglobin 13.6 g/dL (14.0-18.0); Mean Corpuscular Hemoglobin 33.9 pg (27.0-31.0); Mean Platelet Volume 8.3 fL (7.4-10.4); Platelet Count 144 thou/uL (130-400); RBC Distribution Width 13.4 % (11.5-14.5); Red Blood Cell (RBC) Count 4.02 mill/uL (4.70-6.10); White Blood Cell (WBC) Count 12.3 thou/uL (4.8-10.8)
[2020-04-26 06:43] LABS: Anion Gap 14 mmol/L (10-20); BUN (Urea Nitrogen) 16 mg/dL (8.4-25.7); Calc. Creatinine Clearance 143 mL/min (70-130); Calcium 8.2 mg/dL (7.8-10.44); Carbon Dioxide 23 mmol/L (23-31); Chloride 105 mmol/L (98-107); Estimated GFR-MDRD 86; Glucose 109 mg/dL (80-115); Potassium 3.3 mmol/L (3.5-5.1); Sodium 139 mmol/L (136-145)
[2020-04-26] MEDS: Acetaminophen 325 MG TAB PO PRN (08:43)
[2020-04-26] MEDS: metFORMIN 500 MG TAB PO SCH ×2 (08:43→17:35)
[2020-04-26] MEDS: Enoxaparin Sodium 40 MG/0.4 ML SYRINGE SC SCH (08:44)
[2020-04-26] MEDS: Famotidine 20 MG TAB PO SCH ×2 (08:44→20:46)
[2020-04-26] MEDS: Nicotine 21 MG PATCH TD SCH (08:44)
--- NOTE | 2020-04-26 12:51 | PDOC.HOSPP ---
- Subjective Encounter Date: 04/26/20 Encounter Time: 10:45 Subjective: sitting in chair with elevation of left leg feels better, no fever - Objective Vital Signs & Weight: Vital Signs (12 hours) Temp Pulse Resp BP BP Pulse Ox 04/26/20 11:57 87 20 98 04/26/20 11:11 98.6 F 88 18 134/82 98 04/26/20 08:00 96 04/26/20 07:32 91 16 96 04/26/20 07:06 99.4 F 84 18 145/86 H 96 04/26/20 04:28 97.5 F L 79 18 113/73 95 Weight Admit Weight 286 lb 4.8 oz Weight 286 lb 4.8 oz I&O: 04/25/20 04/26/20 04/27/20 06:59 06:59 06:59 Intake Total 1020 1600 Balance 1020 1600 Result Diagrams: 04/26/20 06:03 04/26/20 06:03 Additional Labs: Accuchecks 04/26/20 04/26/20 04/25/20 11:16 04:28 20:02 POC Glucose 102 138 H 141 H 04/25/20 04/25/20 16:18 12:01 POC Glucose 105 96 Hospitalist ROS - Medication Medications: Active Medications Generic Name Dose Route Start Last Admin Trade Name Freq PRN Reason Stop Dose Admin Acetaminophen 650 mg 04/22/20 16:35 04/26/20 08:43 Tylenol PO 650 mg Q4H PRN Administration Headache/Fever/Mild Pain (1-3) Hydrocodone Bitart/Acetaminophen 1 tab 04/22/20 16:35 04/24/20 14:20 [place] 5/325 PO 1 tab Q4H PRN Administration Moderate Pain (4-6) Albuterol/Ipratropium 3 ml 04/24/20 12:30 04/26/20 11:57 Duoneb NEB 3 ml TID-RT KAYA Administration Amlodipine Besylate 10 mg 04/22/20 21:00 04/25/20 20:48 Norvasc PO 10 mg QPM KAYA Administration Enoxaparin Sodium 40 mg 04/23/20 09:00 04/26/20 08:44 Lovenox SC 40 mg 0900 KAYA Administration Famotidine 20 mg 04/22/20 21:00 04/26/20 08:44 Pepcid PO 20 mg BID KAYA Administration Furosemide 40 mg 04/25/20 14:00 04/26/20 05:39 Lasix SLOW IVP 40 mg 0600,1400 KAYA Administration HCTZ/Losartan Potassium 1 tab 04/22/20 21:00 04/25/20 20:48 Hyzaar 50/12.5 PO 1 tab QPM KAYA Administration Ceftriaxone Sodium 1 gm/ 100 mls @ 200 mls/hr 04/25/20 14:00 04/25/20 13:26 Sodium Chloride IVPB 100 mls Q24HR KAYA Administration Ibuprofen 600 mg 04/23/20 10:21 04/25/20 13:18 Motrin PO 600 mg Q6H PRN Administration temp >101 Metformin HCl 1,000 mg 04/23/20 08:00 04/26/20 08:43 Glucophage PO 1,000 mg BID-WM KAYA Administration Metoprolol Succinate 100 mg 04/22/20 21:00 04/25/20 20:48 Toprol Xl PO 100 mg QPM KAYA Administration Niacin 1,000 mg 04/22/20 21:00 04/25/20 20:48 Niaspan Er PO 1,000 mg HS KAYA Administration Nicotine 21 mg 04/24/20 09:00 04/26/20 08:44 Nicoderm Patch TD 21 mg DAILY KAYA Administration Ondansetron HCl 4 mg 04/22/20 16:35 04/23/20 03:22 Zofran IVP 4 mg Q6H PRN Administration Nausea/Vomiting - Exam General Appearance: awake alert Eye: PERRL, anicteric sclera ENT: no oropharyngeal lesions, moist mucosa Neck: supple, no JVD Heart: RRR, no murmur Respiratory: no wheezes, no rales Gastrointestinal: soft, non-tender, non-distended, normal bowel sounds Extremities - other findings: right leg erythema and edema++ Neurological: cranial nerve grossly intact, no focal deficits Psychiatric: normal affect, A&O x 3 Hosp A/P (1) Sepsis Code(s): A41.9 - SEPSIS, UNSPECIFIED ORGANISM Status: Resolved Qualifiers: Sepsis type: sepsis due to unspecified organism Severe sepsis shock status : without septic shock (2) Left leg cellulitis Code(s): L03.116 - CELLULITIS OF LEFT LOWER LIMB Status: Acute (3) HTN (hypertension) Code(s): I10 - ESSENTIAL (PRIMARY) HYPERTENSION Status: Chronic Qualifiers: Hypertension type: essential hypertension Qualified Code(s): I10 - Essential (primary) hypertension (4) DM type 2 (diabetes mellitus, type 2) Status: Chronic Qualifiers: Diabetes mellitus watermaster insulin use: without usp use (5) Dyslipidemia Code(s): E78.5 - HYPERLIPIDEMIA, UNSPECIFIED Status: Chronic (6) Obesity (BMI 30-39.9) Code(s): E66.9 - OBESITY, UNSPECIFIED Status: Chronic (7) Tobacco abuse Code(s): Z72.0 - TOBACCO USE Status: Chronic - Plan is on ceftriaxone has been afebrile last 24hrs on lasix due to worsoning edema and blistering d/w patient at bedside MRI results noted duonebs tid hemostable
[2020-04-26] MEDS: cefTRIAXone\\ROCEPHIN 1 GM in Sodium Chloride 0.9% 100 ML IVPB SCH (13:32)
--- NOTE | 2020-04-26 16:44 | PRG ---
DATE OF SERVICE: SUBJECTIVE: Feeling better, but still keeping his legs down. At least when I arrived in the room, his legs were down, he was sitting on the bed. No respiratory symptoms or abdominal pain. Diarrhea has resolved. OBJECTIVE: VITAL SIGNS: T-max 99.4 and BP 130/80. EXTREMITIES: Left leg with improvement, but is still quite red, but not as distended. LUNGS: Clear. HEART: S1 and S2 regular rate. ABDOMEN: Soft. LABORATORY DATA: White cell count 12,000, hemoglobin 13, and platelets 144. ASSESSMENT/DISCUSSION: Venous insufficiency, chronic smoking, diabetes, obesity, and cellulitis in left lower extremity. Steady, but slow improvement. Continue Rocephin a few more days and it can be transitioned to Keflex for discharge planning and then suppressive Penicillin VK for one year. Compression device such as stockings would be advisable after discharge. Job ID: [id number]
[2020-04-26] MEDS: Amlodipine 5 MG TAB PO SCH (20:46)
[2020-04-26] MEDS: Ibuprofen 600 MG TAB PO PRN (21:18)
[2020-04-27] MEDS: Furosemide 40 MG/4 ML VIAL SLOW IVP SCH ×2 (06:12→13:19)
[2020-04-27 06:41] LABS: #Eosinphils 0.1 thou/uL (0.0-0.7); #Lymphocytes 2.1 thou/uL (1.20-3.40); #Monocytes 1.1 thou/uL (0.11-0.59); #Neutrophils 9.2 thou/uL (1.40-6.50); %Basophils 0.4 % (0.0-1.0); %Eosinophils 1.1 % (0.0-10.0); %Lymphocytes 16.8 % (21.0-51.0); %Monocytes 8.5 % (0.0-10.0); %Neutrophils 73.3 % (42.0-75.0); Hemoglobin 12.2 g/dL (14.0-18.0); Mean Corpuscular HGB CONC 32.2 g/dL (32.0-36.0); Mean Corpuscular Hemoglobin 33.4 pg (27.0-31.0); Mean Platelet Volume 8.3 fL (7.4-10.4); Platelet Count 167 thou/uL (130-400); RBC Distribution Width 13.4 % (11.5-14.5); Red Blood Cell (RBC) Count 3.64 mill/uL (4.70-6.10); White Blood Cell (WBC) Count 12.6 thou/uL (4.8-10.8)
[2020-04-27 07:01] LABS: Anion Gap 16 mmol/L (10-20); BUN (Urea Nitrogen) 17 mg/dL (8.4-25.7); Calc. Creatinine Clearance 125 mL/min (70-130); Calcium 7.9 mg/dL (7.8-10.44); Carbon Dioxide 21 mmol/L (23-31); Chloride 108 mmol/L (98-107); Estimated GFR-MDRD 73; Glucose 106 mg/dL (80-115); Potassium 3.1 mmol/L (3.5-5.1); Sodium 142 mmol/L (136-145)
[2020-04-27] MEDS: Nicotine 21 MG PATCH TD SCH (08:08)
[2020-04-27] MEDS: Famotidine 20 MG TAB PO SCH ×2 (08:08→19:39)
[2020-04-27] MEDS: metFORMIN 500 MG TAB PO SCH ×2 (08:08→16:22)
[2020-04-27] MEDS: Enoxaparin Sodium 40 MG/0.4 ML SYRINGE SC SCH (08:09)
[2020-04-27] MEDS ORDERED: Potassium Chloride 20 MEQ TAB PO SCH (09:00)
[2020-04-27] MEDS: Ibuprofen 600 MG TAB PO PRN ×2 (10:51→22:07)
--- NOTE | 2020-04-27 12:15 | PDOC.HOSPP ---
- Subjective Encounter Date: 04/27/20 Encounter Time: 10:00 Subjective: left leg is still edematous and has redness no fever or cough at bedside - Objective Vital Signs & Weight: Vital Signs (12 hours) Temp Pulse Resp BP Pulse Ox 04/27/20 11:15 98.1 F 83 16 123/71 97 04/27/20 08:57 78 16 95 04/27/20 08:00 98 04/27/20 07:53 97.8 F 77 16 138/76 98 Weight Admit Weight 286 lb 4.8 oz Weight 286 lb 4.8 oz I&O: 04/26/20 04/27/20 04/28/20 06:59 06:59 06:59 Intake Total 1600 450 Balance 1600 450 Result Diagrams: 04/27/20 06:01 04/27/20 06:01 Additional Labs: Accuchecks 04/27/20 04/27/20 04/26/20 11:19 05:31 19:23 POC Glucose 107 107 173 H 04/26/20 16:01 POC Glucose 121 H Hospitalist ROS - Medication Medications: Active Medications Generic Name Dose Route Start Last Admin Trade Name Freq PRN Reason Stop Dose Admin Acetaminophen 650 mg 04/22/20 16:35 04/26/20 08:43 Tylenol PO 650 mg Q4H PRN Administration Headache/Fever/Mild Pain (1-3) Hydrocodone Bitart/Acetaminophen 1 tab 04/22/20 16:35 04/24/20 14:20 [place] 5/325 PO 1 tab Q4H PRN Administration Moderate Pain (4-6) Albuterol/Ipratropium 3 ml 04/24/20 12:30 04/27/20 08:57 Duoneb NEB 3 ml TID-RT KAYA Administration Amlodipine Besylate 10 mg 04/22/20 21:00 04/26/20 20:46 Norvasc PO 10 mg QPM KAYA Administration Enoxaparin Sodium 40 mg 04/23/20 09:00 04/27/20 08:09 Lovenox SC 40 mg 0900 KAYA Administration Famotidine 20 mg 04/22/20 21:00 04/27/20 08:08 Pepcid PO 20 mg BID KAYA Administration Furosemide 40 mg 04/25/20 14:00 04/27/20 06:12 Lasix SLOW IVP 40 mg 0600,1400 KAYA Administration HCTZ/Losartan Potassium 1 tab 04/22/20 21:00 04/26/20 20:46 Hyzaar 50/12.5 PO 1 tab QPM KAYA Administration Ceftriaxone Sodium 1 gm/ 100 mls @ 200 mls/hr 04/25/20 14:00 04/26/20 13:32 Sodium Chloride IVPB 100 mls Q24HR KAYA Administration Ibuprofen 600 mg 04/23/20 10:21 04/27/20 10:51 Motrin PO 600 mg Q6H PRN Administration temp >101 Metformin HCl 1,000 mg 04/23/20 08:00 04/27/20 08:08 Glucophage PO 1,000 mg BID-WM KAYA Administration Metoprolol Succinate 100 mg 04/22/20 21:00 04/26/20 20:46 Toprol Xl PO 100 mg QPM KAYA Administration Niacin 1,000 mg 04/22/20 21:00 04/26/20 20:46 Niaspan Er PO 1,000 mg HS KAYA Administration Nicotine 21 mg 04/24/20 09:00 04/27/20 08:08 Nicoderm Patch TD 21 mg DAILY KAYA Administration Ondansetron HCl 4 mg 04/22/20 16:35 04/23/20 03:22 Zofran IVP 4 mg Q6H PRN Administration Nausea/Vomiting - Exam General Appearance: awake alert Eye: PERRL, anicteric sclera ENT: no oropharyngeal lesions, moist mucosa Neck: supple, no JVD Heart: RRR, no murmur Respiratory: no wheezes, no rales Gastrointestinal: soft, non-tender, non-distended, normal bowel sounds Extremities - other findings: left leg has erythema and edema Neurological: cranial nerve grossly intact, no focal deficits Psychiatric: normal affect, A&O x 3 Hosp A/P (1) Sepsis Code(s): A41.9 - SEPSIS, UNSPECIFIED ORGANISM Status: Resolved Qualifiers: Sepsis type: sepsis due to unspecified organism Severe sepsis shock status : without septic shock (2) Left leg cellulitis Code(s): L03.116 - CELLULITIS OF LEFT LOWER LIMB Status: Acute (3) HTN (hypertension) Code(s): I10 - ESSENTIAL (PRIMARY) HYPERTENSION Status: Chronic Qualifiers: Hypertension type: essential hypertension Qualified Code(s): I10 - Essential (primary) hypertension (4) DM type 2 (diabetes mellitus, type 2) Status: Chronic Qualifiers: Diabetes mellitus halfway insulin use: without halfway use (5) Dyslipidemia Code(s): E78.5 - HYPERLIPIDEMIA, UNSPECIFIED Status: Chronic (6) Obesity (BMI 30-39.9) Code(s): E66.9 - OBESITY, UNSPECIFIED Status: Chronic (7) Tobacco abuse Code(s): Z72.0 - TOBACCO USE Status: Chronic - Plan is on ceftriaxone, still has severe erythema and edema has been afebrile last 2 days now on lasix due to worsoning edema and blistering d/w patient at bedside MRI results noted duonebs tid hemostable
[2020-04-27] MEDS: cefTRIAXone\\ROCEPHIN 1 GM in Sodium Chloride 0.9% 100 ML IVPB SCH (13:20)
[2020-04-27] MEDS: Amlodipine 5 MG TAB PO SCH (19:38)
[2020-04-28] MEDS: Furosemide 40 MG/4 ML VIAL SLOW IVP SCH ×2 (06:19→13:36)
[2020-04-28] MEDS: Zinc Sulfate 220 MG CAP PO SCH (08:12)
[2020-04-28] MEDS: Saccharomyces boulardii 250 MG CAP PO SCH (08:13)
[2020-04-28] MEDS: Nicotine 21 MG PATCH TD SCH (08:13)
[2020-04-28] MEDS: Famotidine 20 MG TAB PO SCH ×2 (08:13→21:44)
[2020-04-28] MEDS: Ascorbic Acid 500 mg Chewable Tablet PO SCH (08:14)
[2020-04-28] MEDS: metFORMIN 500 MG TAB PO SCH ×2 (08:14→18:26)
[2020-04-28] MEDS: Multivitamin W/ Minerals 1 TAB PO SCH (08:14)
[2020-04-28] MEDS: Potassium Chloride 20 MEQ TAB PO SCH (08:15)
[2020-04-28] MEDS: Enoxaparin Sodium 40 MG/0.4 ML SYRINGE SC SCH (08:16)
--- NOTE | 2020-04-28 11:53 | PDOC.HOSPP ---
- Subjective Encounter Date: 04/28/20 Encounter Time: 09:15 Subjective: leg edema has come down a bit, still has erythema and edema no fever or sob - Objective Vital Signs & Weight: Vital Signs (12 hours) Temp Pulse Resp BP Pulse Ox 04/28/20 10:51 98.5 F 85 16 115/71 95 04/28/20 08:15 97 04/28/20 07:44 98.6 F 91 16 114/67 97 04/28/20 06:55 95 18 98 Weight Admit Weight 286 lb 4.8 oz Weight 286 lb 4.8 oz I&O: 04/27/20 04/28/20 04/29/20 06:59 06:59 06:59 Intake Total 450 Balance 450 Result Diagrams: 04/27/20 06:01 04/27/20 06:01 Additional Labs: Accuchecks 04/28/20 04/28/20 04/27/20 11:01 04:13 19:32 POC Glucose 119 H 118 H 122 H 04/27/20 04/27/20 15:46 11:19 POC Glucose 118 H 107 Hospitalist ROS - Medication Medications: Active Medications Generic Name Dose Route Start Last Admin Trade Name Freq PRN Reason Stop Dose Admin Acetaminophen 650 mg 04/22/20 16:35 04/26/20 08:43 Tylenol PO 650 mg Q4H PRN Administration Headache/Fever/Mild Pain (1-3) Hydrocodone Bitart/Acetaminophen 1 tab 04/22/20 16:35 04/24/20 14:20 [place] 5/325 PO 1 tab Q4H PRN Administration Moderate Pain (4-6) Albuterol/Ipratropium 3 ml 04/24/20 12:30 04/28/20 06:55 Duoneb NEB 3 ml TID-RT KAYA Administration Amlodipine Besylate 10 mg 04/22/20 21:00 04/27/20 19:38 Norvasc PO 10 mg QPM KAYA Administration Ascorbic Acid 500 mg 04/28/20 09:00 04/28/20 08:14 Vitamin C PO 500 mg DAILY KAYA Administration Enoxaparin Sodium 40 mg 04/23/20 09:00 04/28/20 08:16 Lovenox SC 40 mg 0900 KAYA Administration Famotidine 20 mg 04/22/20 21:00 06/12/20 08:13 Pepcid PO 20 mg BID KAYA Administration Furosemide 40 mg 04/25/20 14:00 04/28/20 06:19 Lasix SLOW IVP 40 mg 0600,1400 KAYA Administration HCTZ/Losartan Potassium 1 tab 04/22/20 21:00 04/27/20 19:39 Hyzaar 50/12.5 PO 1 tab QPM KAYA Administration Ceftriaxone Sodium 1 gm/ 100 mls @ 200 mls/hr 04/25/20 14:00 04/27/20 13:20 Sodium Chloride IVPB 100 mls Q24HR KAYA Administration Ibuprofen 600 mg 04/23/20 10:21 04/27/20 22:07 Motrin PO 600 mg Q6H PRN Administration temp >101 Iron/Minerals/Multivitamins 1 tab 04/28/20 09:00 04/28/20 08:14 Theragran M PO 1 tab DAILY KAYA Administration Metformin HCl 1,000 mg 04/23/20 08:00 04/28/20 08:14 Glucophage PO 1,000 mg BID-WM KAYA Administration Metoprolol Succinate 100 mg 04/22/20 21:00 04/27/20 19:40 Toprol Xl PO 100 mg QPM KAYA Administration Niacin 1,000 mg 04/22/20 21:00 04/27/20 19:39 Niaspan Er PO 1,000 mg HS KAYA Administration Nicotine 21 mg 04/24/20 09:00 04/28/20 08:13 Nicoderm Patch TD 21 mg DAILY KAYA Administration Ondansetron HCl 4 mg 04/22/20 16:35 04/23/20 03:22 Zofran IVP 4 mg Q6H PRN Administration Nausea/Vomiting Potassium Chloride 40 meq 04/28/20 08:00 04/28/20 08:15 K-Dur PO 40 meq QAM-WM KAYA Administration Saccharomyces Boulardii 250 mg 04/28/20 09:00 04/28/20 08:13 Florastor PO 250 mg DAILY KAYA Administration Zinc Sulfate 220 mg 04/28/20 09:00 04/28/20 08:12 Zinc Sulfate PO 220 mg DAILY KAYA Administration - Exam General Appearance: awake alert Eye: PERRL, anicteric sclera ENT: no oropharyngeal lesions, moist mucosa Neck: supple, no JVD Heart: RRR, no murmur Respiratory: no wheezes, no rales, rhonchi Gastrointestinal: soft, non-tender, non-distended, normal bowel sounds Extremities - other findings: left leg erythema and edema+ Neurological: cranial nerve grossly intact, no focal deficits Psychiatric: normal affect, A&O x 3 Hosp A/P (1) Sepsis Code(s): A41.9 - SEPSIS, UNSPECIFIED ORGANISM Status: Resolved Qualifiers: Sepsis type: sepsis due to unspecified organism Severe sepsis shock status : without septic shock (2) Left leg cellulitis Code(s): L03.116 - CELLULITIS OF LEFT LOWER LIMB Status: Acute (3) HTN (hypertension) Code(s): I10 - ESSENTIAL (PRIMARY) HYPERTENSION Status: Chronic Qualifiers: Hypertension type: essential hypertension Qualified Code(s): I10 - Essential (primary) hypertension (4) DM type 2 (diabetes mellitus, type 2) Status: Chronic Qualifiers: Diabetes mellitus [facility] insulin use: without edge stripper use (5) Dyslipidemia Code(s): E78.5 - HYPERLIPIDEMIA, UNSPECIFIED Status: Chronic (6) Obesity (BMI 30-39.9) Code(s): E66.9 - OBESITY, UNSPECIFIED Status: Chronic (7) Tobacco abuse Code(s): Z72.0 - TOBACCO USE Status: Chronic - Plan is on ceftriaxone, still has erythema, edema and blistering. will try wearing abbey hose if he tolerates has been afebrile last 2 days now on lasix due to worsoning edema and blistering d/w patient at bedside MRI results noted duonebs tid hemostable
--- NOTE | 2020-04-28 14:22 | PRG ---
DATE OF SERVICE: 04/28/2020 SUBJECTIVE: Mr. Frederick is lying in bed, has not much pain in the left lower extremity. No dyspnea. Voiding without difficulty. No diarrhea. OBJECTIVE: VITAL SIGNS: He is afebrile. BP normal. O2 saturations 96 on room air. GENERAL: Appears in no distress. EXTREMITIES: Left leg is still with erythema but not as bright and the leg is not as swollen, but still with swelling. LUNGS: Clear. HEART: S1 and S2, regular rate. ABDOMEN: Soft. Not distended or tender. No ascites. No bladder distention. NEUROLOGIC: Nonfocal. LABORATORY DATA: White cell count is 12.6, hemoglobin 12.2, platelets 167. Creatinine 1.01. Microbiology, no growth in blood cultures. He is currently on Rocephin 1 g daily. ASSESSMENT AND DISCUSSION: Venous insufficiency, chronic smoking, diabetes type 2, obesity, and cellulitis of left lower extremity, steady improvement. Switch him to oral Keflex. Compressive dressing. May be another 20 for 48 hours, discharge planning. Job ID: [id number]
[2020-04-28] MEDS: cefTRIAXone\\ROCEPHIN 1 GM in Sodium Chloride 0.9% 100 ML IVPB SCH (16:40)
[2020-04-28] MEDS: Cephalexin 250 MG CAP PO SCH ×2 (18:28→23:31)
[2020-04-28] MEDS: Amlodipine 5 MG TAB PO SCH (21:41)
[2020-04-29] MEDS: Ibuprofen 600 MG TAB PO PRN (01:45)
[2020-04-29] MEDS: Cephalexin 250 MG CAP PO SCH ×3 (06:18→17:01)
[2020-04-29] MEDS: Furosemide 40 MG/4 ML VIAL SLOW IVP SCH ×2 (06:18→13:18)
[2020-04-29] MEDS: metFORMIN 500 MG TAB PO SCH ×2 (09:39→17:00)
[2020-04-29] MEDS: Potassium Chloride 20 MEQ TAB PO SCH (09:40)
[2020-04-29] MEDS: Ascorbic Acid 500 mg Chewable Tablet PO SCH (09:40)
[2020-04-29] MEDS: Zinc Sulfate 220 MG CAP PO SCH (09:41)
[2020-04-29] MEDS: Enoxaparin Sodium 40 MG/0.4 ML SYRINGE SC SCH (09:41)
[2020-04-29] MEDS: Famotidine 20 MG TAB PO SCH ×2 (09:41→22:13)
[2020-04-29] MEDS: Saccharomyces boulardii 250 MG CAP PO SCH (09:41)
[2020-04-29] MEDS: Nicotine 21 MG PATCH TD SCH (09:42)
[2020-04-29] MEDS: Multivitamin W/ Minerals 1 TAB PO SCH (09:42)
--- NOTE | 2020-04-29 11:40 | PDOC.HOSPP ---
- Subjective Encounter Date: 04/29/20 Encounter Time: 11:00 Subjective: no new complaints, at bedside - Objective Vital Signs & Weight: Vital Signs (12 hours) Temp Pulse Resp BP Pulse Ox 04/29/20 09:41 99 04/29/20 07:45 97.9 F 84 20 117/77 99 04/29/20 06:40 76 16 99 04/29/20 05:30 98.6 F 75 20 130/88 94 L Weight Admit Weight 286 lb 4.8 oz Weight 286 lb 4.8 oz I&O: 04/28/20 04/29/20 04/30/20 06:59 06:59 06:59 Intake Total 800 Balance 800 Result Diagrams: 04/27/20 06:01 04/27/20 06:01 Additional Labs: Accuchecks 04/29/20 04/28/20 04/28/20 06:22 20:04 16:11 POC Glucose 95 125 H 122 H 04/28/20 11:01 POC Glucose 119 H Hospitalist ROS - Medication Medications: Active Medications Generic Name Dose Route Start Last Admin Trade Name Freq PRN Reason Stop Dose Admin Acetaminophen 650 mg 04/22/20 16:35 04/26/20 08:43 Tylenol PO 650 mg Q4H PRN Administration Headache/Fever/Mild Pain (1-3) Hydrocodone Bitart/Acetaminophen 1 tab 04/22/20 16:35 04/24/20 14:20 [place] 5/325 PO 1 tab Q4H PRN Administration Moderate Pain (4-6) Albuterol/Ipratropium 3 ml 04/24/20 12:30 04/29/20 06:40 Duoneb NEB 3 ml TID-RT KAYA Administration Amlodipine Besylate 10 mg 04/22/20 21:00 04/28/20 21:41 Norvasc PO Not Given QPM KAYA Ascorbic Acid 500 mg 04/28/20 09:00 04/29/20 09:40 Vitamin C PO 500 mg DAILY KAYA Administration Cephalexin 500 mg 04/28/20 18:00 04/29/20 06:18 Keflex PO 500 mg Q6HR KAYA Administration Enoxaparin Sodium 40 mg 04/23/20 09:00 04/29/20 09:41 Lovenox SC 40 mg 0900 KAYA Administration Famotidine 20 mg 04/22/20 21:00 04/29/20 09:41 Pepcid PO 20 mg BID KAYA Administration Furosemide 40 mg 04/25/20 14:00 04/29/20 06:18 Lasix SLOW IVP 40 mg 0600,1400 KAYA Administration HCTZ/Losartan Potassium 1 tab 04/22/20 21:00 04/28/20 21:42 Hyzaar 50/12.5 PO Not Given QPM KAYA Ibuprofen 600 mg 04/23/20 10:21 04/29/20 01:45 Motrin PO 600 mg Q6H PRN Administration temp >101 Iron/Minerals/Multivitamins 1 tab 04/28/20 09:00 04/29/20 09:42 Theragran M PO 1 tab DAILY KAYA Administration Metformin HCl 1,000 mg 04/23/20 08:00 04/29/20 09:39 Glucophage PO 1,000 mg BID-WM KAYA Administration Metoprolol Succinate 100 mg 04/22/20 21:00 04/28/20 21:44 Toprol Xl PO 100 mg QPM KAYA Administration Niacin 1,000 mg 04/22/20 21:00 04/28/20 21:44 Niaspan Er PO 1,000 mg HS KAYA Administration Nicotine 21 mg 04/24/20 09:00 04/29/20 09:42 Nicoderm Patch TD 21 mg DAILY KAYA Administration Ondansetron HCl 4 mg 04/22/20 16:35 04/23/20 03:22 Zofran IVP 4 mg Q6H PRN Administration Nausea/Vomiting Potassium Chloride 40 meq 04/28/20 08:00 04/29/20 09:40 K-Dur PO 40 meq QAM-WM KAYA Administration Saccharomyces Boulardii 250 mg 04/28/20 09:00 04/29/20 09:41 Florastor PO 250 mg DAILY KAYA Administration Zinc Sulfate 220 mg 04/28/20 09:00 04/29/20 09:41 Zinc Sulfate PO 220 mg DAILY KAYA Administration - Exam General Appearance: awake alert Eye: PERRL, anicteric sclera ENT: no oropharyngeal lesions, moist mucosa Neck: supple, no JVD Heart: RRR, no murmur Respiratory: no wheezes, no rales Gastrointestinal: soft, non-tender, non-distended, normal bowel sounds Extremities - other findings: left leg erythema and edema with blistering+ Neurological: cranial nerve grossly intact, no focal deficits Psychiatric: normal affect, A&O x 3 Hosp A/P (1) Sepsis Code(s): A41.9 - SEPSIS, UNSPECIFIED ORGANISM Status: Resolved Qualifiers: Sepsis type: sepsis due to unspecified organism Severe sepsis shock status : without septic shock (2) Left leg cellulitis Code(s): L03.116 - CELLULITIS OF LEFT LOWER LIMB Status: Acute (3) HTN (hypertension) Code(s): I10 - ESSENTIAL (PRIMARY) HYPERTENSION Status: Chronic Qualifiers: Hypertension type: essential hypertension Qualified Code(s): I10 - Essential (primary) hypertension (4) DM type 2 (diabetes mellitus, type 2) Status: Chronic Qualifiers: Diabetes mellitus dedicated intermodal truck driver insulin use: without dedicated intermodal truck driver use (5) Dyslipidemia Code(s): E78.5 - HYPERLIPIDEMIA, UNSPECIFIED Status: Chronic (6) Obesity (BMI 30-39.9) Code(s): E66.9 - OBESITY, UNSPECIFIED Status: Chronic (7) Tobacco abuse Code(s): Z72.0 - TOBACCO USE Status: Chronic - Plan is on keflex, still has erythema, edema and blistering. wound care is placing compression bandage today to see if his swelling will come down. has been afebrile last 3 days now on lasix due to worsoning edema and blistering d/w patient at bedside MRI results noted duonebs tid hemostable dc plan per , has severe cellulitis of left leg with edema, erythema and blistering.
[2020-04-29] MEDS: Acetaminophen 325 MG TAB PO PRN (17:00)
[2020-04-29] MEDS: Amlodipine 5 MG TAB PO SCH (22:13)
[2020-04-30] MEDS: Cephalexin 250 MG CAP PO SCH ×4 (00:23→17:13)
[2020-04-30] MEDS: Ibuprofen 600 MG TAB PO PRN ×2 (01:51→19:28)
[2020-04-30] MEDS: Furosemide 40 MG/4 ML VIAL SLOW IVP SCH (06:27)
[2020-04-30] MEDS: Potassium Chloride 20 MEQ TAB PO SCH (08:17)
[2020-04-30] MEDS: Nicotine 21 MG PATCH TD SCH (08:18)
[2020-04-30] MEDS: Famotidine 20 MG TAB PO SCH ×2 (08:18→21:04)
[2020-04-30] MEDS: Enoxaparin Sodium 40 MG/0.4 ML SYRINGE SC SCH (08:18)
[2020-04-30] MEDS: Saccharomyces boulardii 250 MG CAP PO SCH (08:18)
[2020-04-30] MEDS: metFORMIN 500 MG TAB PO SCH ×2 (08:18→17:13)
[2020-04-30] MEDS: Ascorbic Acid 500 mg Chewable Tablet PO SCH (08:18)
[2020-04-30] MEDS: Multivitamin W/ Minerals 1 TAB PO SCH (08:18)
[2020-04-30] MEDS: Zinc Sulfate 220 MG CAP PO SCH (08:18)
--- NOTE | 2020-04-30 10:52 | PDOC.HOSPP ---
- Subjective Encounter Date: 04/30/20 Encounter Time: 09:00 Subjective: feels better, leg swelling has come down with compression dressing - Objective Vital Signs & Weight: Vital Signs (12 hours) Temp Pulse Resp BP Pulse Ox 04/30/20 08:00 98 04/30/20 07:29 78 16 98 04/30/20 07:11 97.5 F L 80 18 151/78 H 98 Weight Admit Weight 286 lb 4.8 oz Weight 286 lb 4.8 oz I&O: 04/29/20 04/30/20 05/01/20 06:59 06:59 06:59 Intake Total 800 720 480 Balance 800 720 480 Result Diagrams: 04/27/20 06:01 04/27/20 06:01 Additional Labs: Accuchecks 04/30/20 04/29/20 04/29/20 06:31 19:27 16:08 POC Glucose 107 139 H 141 H 04/29/20 11:52 POC Glucose 90 Hospitalist ROS - Medication Medications: Active Medications Generic Name Dose Route Start Last Admin Trade Name Freq PRN Reason Stop Dose Admin Acetaminophen 650 mg 04/22/20 16:35 04/29/20 17:00 Tylenol PO 650 mg Q4H PRN Administration Headache/Fever/Mild Pain (1-3) Hydrocodone Bitart/Acetaminophen 1 tab 04/22/20 16:35 04/24/20 14:20 [place] 5/325 PO 1 tab Q4H PRN Administration Moderate Pain (4-6) Albuterol/Ipratropium 3 ml 04/24/20 12:30 04/30/20 07:29 Duoneb NEB 3 ml TID-RT KAYA Administration Amlodipine Besylate 10 mg 04/22/20 21:00 04/29/20 22:13 Norvasc PO Not Given QPM KAYA Ascorbic Acid 500 mg 04/28/20 09:00 04/30/20 08:18 Vitamin C PO 500 mg DAILY KAYA Administration Cephalexin 500 mg 04/28/20 18:00 04/30/20 06:27 Keflex PO 500 mg Q6HR KAYA Administration Enoxaparin Sodium 40 mg 04/23/20 09:00 04/30/20 08:18 Lovenox SC 40 mg 0900 KAYA Administration Famotidine 20 mg 04/22/20 21:00 04/30/20 08:18 Pepcid PO 20 mg BID KAYA Administration Furosemide 40 mg 04/25/20 14:00 04/30/20 06:27 Lasix SLOW IVP 40 mg 0600,1400 KAYA Administration HCTZ/Losartan Potassium 1 tab 04/22/20 21:00 04/29/20 22:13 Hyzaar 50/12.5 PO Not Given QPM KAYA Ibuprofen 600 mg 04/23/20 10:21 04/30/20 01:51 Motrin PO 600 mg Q6H PRN Administration temp >101 Iron/Minerals/Multivitamins 1 tab 04/28/20 09:00 04/30/20 08:18 Theragran M PO 1 tab DAILY KAYA Administration Metformin HCl 1,000 mg 04/23/20 08:00 04/30/20 08:18 Glucophage PO 1,000 mg BID-WM KAYA Administration Metoprolol Succinate 100 mg 04/22/20 21:00 04/29/20 22:12 Toprol Xl PO 100 mg QPM KAYA Administration Niacin 1,000 mg 04/22/20 21:00 04/29/20 22:12 Niaspan Er PO 1,000 mg HS KAYA Administration Nicotine 21 mg 04/24/20 09:00 04/30/20 08:18 Nicoderm Patch TD 21 mg DAILY KAYA Administration Ondansetron HCl 4 mg 04/22/20 16:35 04/23/20 03:22 Zofran IVP 4 mg Q6H PRN Administration Nausea/Vomiting Potassium Chloride 40 meq 04/28/20 08:00 04/30/20 08:17 K-Dur PO 40 meq QAM-WM KAYA Administration Saccharomyces Boulardii 250 mg 04/28/20 09:00 04/30/20 08:18 Florastor PO 250 mg DAILY KAYA Administration Zinc Sulfate 220 mg 04/28/20 09:00 04/30/20 08:18 Zinc Sulfate PO 220 mg DAILY KAYA Administration - Exam General Appearance: awake alert Eye: PERRL, anicteric sclera ENT: no oropharyngeal lesions, moist mucosa Neck: supple, no JVD Heart: RRR, no murmur Respiratory: no wheezes, no rales Gastrointestinal: soft, non-tender, non-distended, normal bowel sounds Extremities: no cyanosis Extremities - other findings: left leg is in compressing dressing, edema is significantly down Neurological: cranial nerve grossly intact, no focal deficits Psychiatric: normal affect, A&O x 3 Hosp A/P (1) Sepsis Code(s): A41.9 - SEPSIS, UNSPECIFIED ORGANISM Status: Resolved Qualifiers: Sepsis type: sepsis due to unspecified organism Severe sepsis shock status : without septic shock (2) Left leg cellulitis Code(s): L03.116 - CELLULITIS OF LEFT LOWER LIMB Status: Acute (3) HTN (hypertension) Code(s): I10 - ESSENTIAL (PRIMARY) HYPERTENSION Status: Chronic Qualifiers: Hypertension type: essential hypertension Qualified Code(s): I10 - Essential (primary) hypertension (4) DM type 2 (diabetes mellitus, type 2) Status: Chronic Qualifiers: Diabetes mellitus fci insulin use: without fci use (5) Dyslipidemia Code(s): E78.5 - HYPERLIPIDEMIA, UNSPECIFIED Status: Chronic (6) Obesity (BMI 30-39.9) Code(s): E66.9 - OBESITY, UNSPECIFIED Status: Chronic (7) Tobacco abuse Code(s): Z72.0 - TOBACCO USE Status: Chronic - Plan is on keflex, severe cellulitis with erythema, edema and blistering. outpt wound care on lasix due to worsoning edema and blistering d/w patient at bedside MRI results noted duonebs tid hemostable dc plan per , likely in am.
[2020-04-30 11:37] LABS: #Basophils 0.1 thou/uL (0.0-0.2); #Eosinphils 0.2 thou/uL (0.0-0.7); #Lymphocytes 1.7 thou/uL (1.20-3.40); #Monocytes 1.1 thou/uL (0.11-0.59); #Neutrophils 6.6 thou/uL (1.40-6.50); %Basophils 0.6 % (0.0-1.0); %Eosinophils 1.6 % (0.0-10.0); %Lymphocytes 17.5 % (21.0-51.0); %Monocytes 10.9 % (0.0-10.0); %Neutrophils 69.3 % (42.0-75.0); Hemoglobin 13.5 g/dL (14.0-18.0); Mean Corpuscular HGB CONC 34.1 g/dL (32.0-36.0); Mean Corpuscular Hemoglobin 35.6 pg (27.0-31.0); Mean Platelet Volume 7.8 fL (7.4-10.4); Platelet Count 354 thou/uL (130-400); RBC Distribution Width 13.2 % (11.5-14.5); Red Blood Cell (RBC) Count 3.78 mill/uL (4.70-6.10); White Blood Cell (WBC) Count 9.6 thou/uL (4.8-10.8)
[2020-04-30 11:56] LABS: Anion Gap 16 mmol/L (10-20); BUN (Urea Nitrogen) 14 mg/dL (8.4-25.7); Calc. Creatinine Clearance 140 mL/min (70-130); Calcium 8.5 mg/dL (7.8-10.44); Carbon Dioxide 24 mmol/L (23-31); Chloride 106 mmol/L (98-107); Estimated GFR-MDRD 83; Glucose 97 mg/dL (80-115); Potassium 4.6 mmol/L (3.5-5.1); Sodium 141 mmol/L (136-145)
[2020-04-30] MEDS: Amlodipine 5 MG TAB PO SCH (21:04)
[2020-05-01] MEDS: Cephalexin 250 MG CAP PO SCH ×2 (00:43→06:23)
[2020-05-01] MEDS: Multivitamin W/ Minerals 1 TAB PO SCH (08:21)
[2020-05-01] MEDS: Ascorbic Acid 500 mg Chewable Tablet PO SCH (08:21)
[2020-05-01] MEDS: metFORMIN 500 MG TAB PO SCH (08:21)
[2020-05-01] MEDS: Saccharomyces boulardii 250 MG CAP PO SCH (08:21)
[2020-05-01] MEDS: Famotidine 20 MG TAB PO SCH (08:21)
[2020-05-01] MEDS: Ibuprofen 600 MG TAB PO PRN (08:21)
[2020-05-01] MEDS: Nicotine 21 MG PATCH TD SCH (08:22)
[2020-05-01] MEDS: Zinc Sulfate 220 MG CAP PO SCH (08:22)
[2020-05-01] MEDS: Enoxaparin Sodium 40 MG/0.4 ML SYRINGE SC SCH (08:22)
[2020-05-01 08:31] VITALS: BP 127/84; TEMP 98.6
--- NOTE | 2020-05-01 11:02 | DIS ---
DATE OF ADMISSION: 04/22/2020 DATE OF DISCHARGE: 04/30/2020 PRIMARY CARE PROVIDER: Vitor Sanches, DISCHARGE DIAGNOSES: 1. Sepsis. 2. Severe left lower extremity cellulitis. 3. Hypokalemia. CONDITION: Condition of the patient on the day of discharge: Stable. I assessed Mr. Frederick on the day of discharge. He denies any chest pain or shortness of breath. Vital signs are stable. S1 and S2 are heard, regular. Lungs are clear to auscultation bilaterally. DISCHARGE MEDICATIONS: Cephalexin 500 mg 4 times a day for 2 weeks and Florastor 250 mg daily for 2 weeks. Otherwise, no change was made to his pre-admission home medications. He has also been advised to use nicotine patch 21 mg daily and to stop smoking. CONSULTATIONS DURING THIS HOSPITALIZATION: Infectious Disease, Dr. Arizmendi. HOSPITAL COURSE: Mr. Frederick is a pleasant 69-year-old gentleman, who was admitted to [facility] for sepsis secondary to severe left lower extremity cellulitis on April 22, 2020. He was initially treated with intravenous antibiotics. Please refer to Dr. Leo's history and physical note dated April 22, 2020, for further details. He was seen by Infectious Disease Service as well. MRI of the left lower extremity showed extensive non-circumscribed nonenhancing fluid signal intensity throughout the subcutaneous adipose layer of the foreleg and foot, which could reflect lymphedema and/or cellulitis. There was no evidence for soft tissue abscess or osteomyelitis. He was also seen by Wound Care Team. Compression dressings were applied because of swelling. He also received intravenous furosemide to improve his lower extremity edema. He improved clinically. He is being discharged home on cephalexin. Many thanks for allowing me to participate in your patient's care. Please feel free to contact me with any questions or concerns. He has been advised to stop tobacco use. POST-ACUTE CARE FOLLOWUP: With primary care provider in 3 days. ACTIVITY: No restrictions. DIET: Diabetic, heart-healthy, and low-sodium. DISCHARGE DESTINATION: Home. TIME SPENT: Total amount of time spent in coordinating this discharge: 25 minutes. Job ID: [id number]
--- NOTE | 2020-05-06 15:26 | EKG ---
Test Reason : Blood Pressure : / mmHG Vent. Rate : 096 BPM Atrial Rate : 096 BPM P-R Int : 160 ms QRS Dur : 154 ms QT Int : 394 ms P-R-T Axes : 042 254 016 degrees QTc Int : 497 ms Normal sinus rhythm Indeterminate axis Right bundle branch block Inferior infarct , age undetermined Abnormal ECG Confirmed by CHELITA TOVAR, NEETA ([id number]), desk editor NOLAN FERREIRA ([id number]) on 05/06/2020 3:26:29 PM Referred By: Confirmed By:NEETA MERLOS MD
== END 2020-05-01 11:45 | disposition home health service (06) | DRG 872 ==
LOC: ERS 14:18 → T4-A 15:45
PROVIDERS: ADMIT Internal Medicine; ATTEND Internal Medicine
DX: A40.8 Other streptococcal sepsis (principal); L03.116 Cellulitis of left lower limb; E87.6 Hypokalemia; E11.9 Type 2 diabetes mellitus without complications; E78.5 Hyperlipidemia, unspecified; E78.00 Pure hypercholesterolemia, unspecified; I10 Essential (primary) hypertension; Z96.643 Presence of artificial hip joint, bilateral; F41.9 Anxiety disorder, unspecified; F17.210 Nicotine dependence, cigarettes, uncomplicated; E66.9 Obesity, unspecified; I87.2 Venous insufficiency (chronic) (peripheral); M10.9 Gout, unspecified; Z87.442 Personal history of urinary calculi; Z98.42 Cataract extraction status, left eye; Z98.41 Cataract extraction status, right eye; Z68.38 Body mass index [BMI] 38.0-38.9, adult; Z79.899 Other long term (current) drug therapy; Z79.84 Long term (current) use of oral hypoglycemic drugs
CPT/HCPCS: 36415; 36416; 80048; 80053; 80202; 83605; 85025; 85060; 87040; 93005; 94640; 96365; 96366; 96367; A9579; J0692; J0696; J1650; J1940; J2185; J2405; J2543; J3370; J3490; J7030; J7050; J7620

== ENCOUNTER 2021-03-15 10:17 | Outpatient (CLI) | payer MEDICARE, BC | END 2021-03-15 10:18 | disposition home or self-care (01) | LOC: BICCT 10:17 → CT 10:18 | PROVIDERS: ATTEND Family Medicine | DX: Z12.2 Encounter for screening for malignant neoplasm of respiratory organs (principal); F17.210 Nicotine dependence, cigarettes, uncomplicated | CPT/HCPCS: 71271 ==

== ENCOUNTER 2021-07-04 | Emergency (ER) | payer MEDICARE, BC | END 2021-07-04 10:45 | disposition home or self-care (01) ==

== ENCOUNTER 2022-04-09 10:08 | Outpatient (CLI) | payer MEDICARE, BC | END 2022-04-09 10:09 | disposition home or self-care (01) | LOC: BICCT 10:08 | PROVIDERS: ATTEND Family Medicine | DX: Z12.2 Encounter for screening for malignant neoplasm of respiratory organs (principal); F17.210 Nicotine dependence, cigarettes, uncomplicated | CPT/HCPCS: 71271 ==

== ENCOUNTER 2023-11-11 10:13 | Outpatient (CLI) | payer MEDICARE, BC ==
[2023-11-11 11:32] LABS: #Basophils 0.1 10x3/uL (0.0-0.2); #Eosinphils 0.3 10x3/uL (0.0-0.5); #Monocytes 0.8 10x3/uL (0.0-1.1); #Neutrophils 6.7 10x3/uL (1.5-8.4); %Basophils 0.9 % (0.0-2.0); %Eosinophils 2.5 % (0.0-6.0); %Lymphocytes 24.6 % (18.0-47.0); %Monocytes 7.4 % (0.0-10.0); %Neutrophils 64.3 % (40.0-75.0); Hemoglobin 15.4 g/dL (13.5-17.5); Mean Corpuscular HGB CONC 33.5 g/dL (32.0-36.0); Mean Corpuscular Hemoglobin 33.5 pg (27.0-33.0); Mean Platelet Volume 10.2 fl (7.4-10.4); Platelet Count 209 10x3/uL (150-450); RBC Distribution Width 14.2 % (11.5-14.5); White Blood Cell (WBC) Count 10.4 10x3/uL (3.5-10.5)
[2023-11-11 11:44] LABS: Prothrombin Time 10.6 sec (9.5-12.1)
[2023-11-11 11:51] LABS: Anion Gap 13 mmol/L (10-20); BUN (Urea Nitrogen) 20 mg/dL (8.4-25.7); Calc. Creatinine Clearance 0 mL/min (70-130); Calcium 8.5 mg/dL (7.8-10.44); Carbon Dioxide 26 mmol/L (23-31); Chloride 107 mmol/L (98-107); Estimated GFR 63; Glucose 100 mg/dL (83-110); Potassium 4.1 mmol/L (3.5-5.1); Sodium 142 mmol/L (136-145)
== END 2023-11-11 10:14 | disposition home or self-care (01) ==
LOC: LABBT 10:13
PROVIDERS: ATTEND Internal Medicine Cardiovascular Disease
DX: Z01.812 Encounter for preprocedural laboratory examination (principal); I48.91 Unspecified atrial fibrillation
CPT/HCPCS: 80048; 85025; 85610

== ENCOUNTER 2023-11-13 08:27 | Day surgery (SDC) | payer MEDICARE, BC ==
[2023-11-11 11:08] VITALS: BMI 35.2
[2023-11-13] MEDS ORDERED: Lidocaine 1% PF 5 ML VIAL ONE (11:41)
[2023-11-13] MEDS ORDERED: PROPOFOL 200 MG/20 ML VIAL ONE (11:41)
== END 2023-11-13 13:38 | disposition home or self-care (01) ==
LOC: SDC 08:27
PROVIDERS: ATTEND Internal Medicine Cardiovascular Disease
PROC: B24BZZZ Ultrasonography of Heart with Aorta (ICD-10-PCS; principal; 2023-11-13)
PROC: 5A2204Z Restoration of Cardiac Rhythm, Single (ICD-10-PCS; 2023-11-13)
DX: I48.91 Unspecified atrial fibrillation (principal); I87.2 Venous insufficiency (chronic) (peripheral); I45.10 Unspecified right bundle-branch block; I10 Essential (primary) hypertension; E11.9 Type 2 diabetes mellitus without complications; F32.A Depression, unspecified; F17.200 Nicotine dependence, unspecified, uncomplicated; F15.90 Other stimulant use, unspecified, uncomplicated; E78.2 Mixed hyperlipidemia; Z90.89 Acquired absence of other organs; Z98.890 Other specified postprocedural states; Z96.642 Presence of left artificial hip joint; Z79.899 Other long term (current) drug therapy; Z79.01 Long term (current) use of anticoagulants
CPT/HCPCS: 92960; 93005; 93010; 93312; J2704